=== PATIENT | female | born 2000 | race Caucasian/White ===

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

== ENCOUNTER 2021-03-31 00:49 | Emergency (ER) | payer BC, OTHER ==
[~2021-03-31] VITALS: Ht 165.1 cm; Wt 83.9 kg
[~2021-03-31 00:49] MED LIST: Bentyl10 MG PO; Zofran Odt4 MG PO
== END 2021-03-31 02:24 | disposition home or self-care (01) ==
LOC: ER 00:49
DX: S40.261A Insect bite (nonvenomous) of right shoulder, initial encounter (principal); Z88.1 Allergy status to other antibiotic agents; Z88.2 Allergy status to sulfonamides; Z88.0 Allergy status to penicillin; W57.XXXA Bitten or stung by nonvenomous insect and other nonvenomous arthropods, initial encounter
CPT/HCPCS: 99282

== ENCOUNTER → 2021-06-01 | Outpatient (CLI) | payer BC, OTHER ==
[2021-06-01 17:05] LABS: BASOPHILS ABSOLUTE AUTO 0.03 K/mm3 (0.00-0.23); BASOPHILS PERCENT AUTO 0 % (0-2); EOSINOPHILS ABSOLUTE AUTO 0.01 K/mm3 (0.00-0.68); EOSINOPHILS PERCENT AUTO 0 % (0-6); Hematocrit 36.9 % (33.0-51.0); Hemoglobin 12.3 g/dL (11.5-16.0); IMMATURE GRAN ABSOLUTE AUTO 0.09 K/mm3 (0.00-0.10); IMMATURE GRAN PERCENT AUTO 1 % (0-1); LYMPHOCYTES ABSOLUTE AUTO 1.57 K/mm3 (0.84-5.20); LYMPHOCYTES PERCENT AUTO 23 % (21-46); MONOCYTES ABSOLUTE AUTO 0.45 K/mm3 (0.16-1.47); MONOCYTES PERCENT AUTO 7 % (4-13); Mean Corpuscular HGB 30.8 pg (26.0-34.0); Mean Corpuscular HGB Conc 33.3 g/dL (31.5-36.5); Mean Corpuscular Volume 93 fL (80-100); Mean Platelet Volume 10.6 fL (9.1-12.4); NEUTROPHILS ABSOLUTE AUTO 4.59 K/mm3 (1.96-9.15); NEUTROPHILS PERCENT AUTO 68 % (41-73); Platelet Count 285 K/mm3 (150-400); RDW Coefficient Variation 12.4 % (11.7-14.2); RDW Standard Deviation 41.9 fL (35.1-46.3); Red Blood Cell Count 3.99 M/mm3 (3.80-5.20); White Blood Cell Count 6.74 K/mm3 (4.00-11.30)
== END | disposition home or self-care (01) ==
LOC: LAB 13:40 → LAB SHORT 13:40
PROVIDERS: Obstetrics & Gynecology
DX: O09.92 Supervision of high risk pregnancy, unspecified, second trimester (principal)
CPT/HCPCS: 82950; 85025

== ENCOUNTER → 2021-07-26 | Outpatient (CLI) | payer BC, OTHER | END | disposition home or self-care (01) | LOC: LAB SHORT 10:59 → LAB 10:59 | DX: O09.93 Supervision of high risk pregnancy, unspecified, third trimester (principal) | CPT/HCPCS: 87081; 87150 ==

== ENCOUNTER 2021-08-21 22:55 | Inpatient (IN) | payer BC, OTHER ==
[~2021-08-21] VITALS: Ht 162.6 cm; Wt 95.0 kg
[2021-08-21 23:50] LABS: BASOPHILS ABSOLUTE AUTO 0.03 K/mm3 (0.00-0.23); BASOPHILS PERCENT AUTO 0 % (0-2); EOSINOPHILS ABSOLUTE AUTO 0.06 K/mm3 (0.00-0.68); EOSINOPHILS PERCENT AUTO 0 % (0-6); Hematocrit 35.7 % (33.0-51.0); Hemoglobin 12.8 g/dL (11.5-16.0); IMMATURE GRAN ABSOLUTE AUTO 0.08 K/mm3 (0.00-0.10); IMMATURE GRAN PERCENT AUTO 1 % (0-1); LYMPHOCYTES ABSOLUTE AUTO 3.57 K/mm3 (0.84-5.20); LYMPHOCYTES PERCENT AUTO 26 % (21-46); MONOCYTES ABSOLUTE AUTO 0.85 K/mm3 (0.16-1.47); MONOCYTES PERCENT AUTO 6 % (4-13); Mean Corpuscular HGB 31.5 pg (26.0-34.0); Mean Corpuscular HGB Conc 35.9 g/dL (31.5-36.5); Mean Corpuscular Volume 88 fL (80-100); Mean Platelet Volume 10.9 fL (9.1-12.4); NEUTROPHILS ABSOLUTE AUTO 8.91 K/mm3 (1.96-9.15); NEUTROPHILS PERCENT AUTO 66 % (41-73); Platelet Count 320 K/mm3 (150-400); RDW Coefficient Variation 12.6 % (11.7-14.2); Red Blood Cell Count 4.06 M/mm3 (3.80-5.20)
[2021-08-21] MEDS ORDERED: BENADRYL25 MG PO (23:53)
[2021-08-21] MEDS ORDERED: ACET500 (23:54)
[2021-08-21] MEDS ORDERED: PRENATAL TABLE1 EAC2 (23:54)
--- NOTE | 2021-08-23 13:58 | NUR ---
AT 1113 LMA PLACED BY RT. SEE RT'S NOTES. GOOD +CO2 DETECTED. SPON RESPIRATIONS NOTED. CPAP. IMPROVEMENT IN COLOR AND TONE NOTED ONCE LMA PLACED. APGARS AT 15 MIN 7. APGARS AT 30 MIN 9.
--- NOTE | 2021-08-23 21:45 | NUR ---
Patient stated had pain and requested pain meds,notified nurse.
[2021-08-24 06:21] LABS: BASOPHILS ABSOLUTE AUTO 0.03 K/mm3 (0.00-0.23); BASOPHILS PERCENT AUTO 0 % (0-2); EOSINOPHILS ABSOLUTE AUTO 0.13 K/mm3 (0.00-0.68); EOSINOPHILS PERCENT AUTO 1 % (0-6); Hematocrit 27.9 % (33.0-51.0); Hemoglobin 9.6 g/dL (11.5-16.0); IMMATURE GRAN ABSOLUTE AUTO 0.15 K/mm3 (0.00-0.10); IMMATURE GRAN PERCENT AUTO 1 % (0-1); LYMPHOCYTES ABSOLUTE AUTO 2.89 K/mm3 (0.84-5.20); LYMPHOCYTES PERCENT AUTO 16 % (21-46); MONOCYTES ABSOLUTE AUTO 1.23 K/mm3 (0.16-1.47); MONOCYTES PERCENT AUTO 7 % (4-13); Mean Corpuscular HGB 31.1 pg (26.0-34.0); Mean Corpuscular HGB Conc 34.4 g/dL (31.5-36.5); Mean Corpuscular Volume 90 fL (80-100); Mean Platelet Volume 10.9 fL (9.1-12.4); NEUTROPHILS ABSOLUTE AUTO 13.27 K/mm3 (1.96-9.15); NEUTROPHILS PERCENT AUTO 75 % (41-73); Platelet Count 233 K/mm3 (150-400); RDW Coefficient Variation 13.4 % (11.7-14.2); RDW Standard Deviation 43.8 fL (35.1-46.3); Red Blood Cell Count 3.09 M/mm3 (3.80-5.20)
--- NOTE | 2021-08-24 09:03 | NUR ---
rept to melvin summers rn
[2021-08-24] MEDS ORDERED: DOCU100 PO (09:43)
[2021-08-24] MEDS ORDERED: IBUP800 PO (09:43)
--- NOTE | 2021-08-24 11:11 | NUR ---
Parents given written and verbal dc instructions. questions answered and verbalize understanding. PPFU scheduled with Marga BOSS RN on Saturday at 900 am. Pt states she already has [address] Cheng scheduled s well. She has tylenol, ibupofen and stool softeners in her room. Will dc later on this afternoon/evening if pt stays afebrile and bps stay stable.
--- NOTE | 2021-08-24 13:22 | NUR ---
PT REPORTS FEELING HEADACHE REQUESTING TYLENOL
--- NOTE | 2021-08-24 13:28 | NUR ---
Parents facetiming with on the phone and nursing staff
--- NOTE | 2021-08-24 16:12 | NUR ---
DISCHARGE TO BOARD EDUCATION GIVEN TO MOTHER AND SO. QUESTIONS WERE ANSWERED. SHE VOICED UNDERSTANDING. DISCHARGED TO BOARDER.
== END 2021-08-24 16:10 | disposition home or self-care (01) | DRG 805 ==
LOC: BC 22:55 → OBS 22:55 → BC 22:57
PROVIDERS: ADMIT Obstetrics & Gynecology
PROC: 10E0XZZ Delivery of Products of Conception, External Approach (ICD-10-PCS; principal; 2021-08-23)
PROC: 10907ZC Drainage of Amniotic Fluid, Therapeutic from Products of Conception, Via Natural or Artificial Opening (ICD-10-PCS; 2021-08-23)
PROC: 3E0DXGC Introduction of Other Therapeutic Substance into Mouth and Pharynx, External Approach (ICD-10-PCS; 2021-08-23)
PROC: 3E033VJ Introduction of Other Hormone into Peripheral Vein, Percutaneous Approach (ICD-10-PCS; 2021-08-23)
PROC: 0HQ9XZZ Repair Perineum Skin, External Approach (ICD-10-PCS; 2021-08-23)
PROC: 10H07YZ Insertion of Other Device into Products of Conception, Via Natural or Artificial Opening (ICD-10-PCS; 2021-08-23)
PROC: 3E0R3BZ Introduction of Anesthetic Agent into Spinal Canal, Percutaneous Approach (ICD-10-PCS; 2021-08-23)
PROC: 00HU33Z Insertion of Infusion Device into Spinal Canal, Percutaneous Approach (ICD-10-PCS; 2021-08-23)
PROC: 8E0ZXY6 Isolation (ICD-10-PCS; 2021-08-23)
DX: O13.4 Gestational [pregnancy-induced] hypertension without significant proteinuria, complicating childbirth (principal); U07.1 COVID-19; Z37.0 Single live birth; O98.52 Other viral diseases complicating childbirth; Z3A.37 37 weeks gestation of pregnancy; O70.0 First degree perineal laceration during delivery; O99.214 Obesity complicating childbirth; E66.9 Obesity, unspecified; Z98.890 Other specified postprocedural states; Z88.2 Allergy status to sulfonamides; Z88.1 Allergy status to other antibiotic agents; Z88.0 Allergy status to penicillin; Z88.8 Allergy status to other drugs, medicaments and biological substances; Z79.899 Other long term (current) drug therapy
CPT/HCPCS: 36415; 51702; 85025; 85027; 86850; 86900; 86901; A9270; J1580; J1885; J2001; J2210; J2405; J2590; J2765; J3010; J3370; J7050; J7120; U0004

== ENCOUNTER → 2022-03-23 | Outpatient (CLI) | payer BC, OTHER ==
[~2022-03-23] MED LIST changes: +ACET500; +BENADRYL25 MG PO; +DOCU100 PO; +IBUP800 PO; +PRENATAL TABLE1 EAC2
[2022-03-24 11:52] LABS: Candida species (DNA Probe) Negative (NEGATIVE); G. vaginalis (DNA Probe) Positive (NEGATIVE); T. vaginalis (DNA Probe) Negative (NEGATIVE)
== END | disposition home or self-care (01) ==
LOC: LAB 13:31 → LAB SHORT 13:31
PROVIDERS: Advanced Practice Midwife
DX: R10.2 Pelvic and perineal pain (principal)
CPT/HCPCS: 87480; 87510; 87660

== ENCOUNTER → 2022-11-01 | Outpatient (CLI) | payer BC, OTHER ==
[2022-11-03 09:11] LABS: CHLAMYDIA TRACHOMATIS, NAA Negative (Negative)
== END | disposition home or self-care (01) ==
LOC: LAB SHORT 10:56
PROVIDERS: Advanced Practice Midwife
DX: Z11.3 Encounter for screening for infections with a predominantly sexual mode of transmission (principal)
CPT/HCPCS: 87491; 87591

== ENCOUNTER 2023-12-12 10:39 | Day surgery (SDC) | payer BC, OTHER ==
[~2023-12-12] VITALS: Ht 165.1 cm; Wt 99.8 kg
[2023-12-12] MEDS ORDERED: ALBU90OI (11:11)
--- NOTE | 2023-12-12 12:32 | NUR ---
12/12/23 1231 Gabriella Newberry 20ML OF ROPIVACAINE 0.5% MIXED AND VERIFIED WITH 0.1ML OF EPI (1MG/ML) TO MAKE ROPIVACAINE 0.5% WITH EPI 1:200,000 FOR INJECTION AT THE OPSITE BY DR SIMS. ABDOMINAL AREA, CHEST TO PUBIS TO SIDES DONE BY ORSC.SINTIA WITH DURAPREP RENITA-AREA INCLUDING VAGINA PREPPED BY ORSC.SXB WITH BETADINE SOLUTION.
[2023-12-12 13:48] VITALS: BP 132/95
--- NOTE | 2023-12-12 13:55 | NUR ---
12/12/23 1355 Ashlie Cerda IV DC'D/CATHETER WNL
== END 2023-12-12 14:08 | disposition home or self-care (01) ==
LOC: ORSCSDS 10:39
PROVIDERS: Obstetrics & Gynecology
PROC: 0UBF4ZX Excision of Cul-de-sac, Percutaneous Endoscopic Approach, Diagnostic (ICD-10-PCS; principal; 2023-12-12 12:00)
DX: R10.2 Pelvic and perineal pain (principal); N94.6 Dysmenorrhea, unspecified; N80.329 Endometriosis of the posterior cul-de-sac, unspecified depth; J45.909 Unspecified asthma, uncomplicated; Z79.899 Other long term (current) drug therapy; E66.9 Obesity, unspecified; Z68.36 Body mass index [BMI] 36.0-36.9, adult
CPT/HCPCS: 88305; J0171; J1100; J1885; J2405; J2704; J2795; J3010